=== PATIENT | male | born 1985 | race Caucasian/White ===

== ENCOUNTER 2020-09-30 22:59 | Emergency (ER) | payer MEDICAID ==
[~2020-09-30] VITALS: Ht 177.8 cm; Wt 70.5 kg
[~2020-09-30 22:59] MED LIST: NO HOME MEDS
--- NOTE | 2020-09-30 23:28 | NUR ---
Residence: [facility] [address] [facility], [address] [facility]. [place],
[2020-09-30 23:49] LABS: BASOPHILS % (AUTO) 0.1 % (0-1); EOSINOPHILS % (AUTO) 0.2 % (0-6); HEMATOCRIT 43.3 % (42.0-52.0); HEMOGLOBIN 14.8 g/dl (14.0-17.9); LYMPHOCYTES # (AUTO) 1.6 X10'3 (1.1-4.8); MEAN CORPUSCULAR HEMOGLOBIN 29.7 PG (27.0-31.0); MEAN CORPUSCULAR HGB CONC 34.2 g/dL (33.0-36.5); MEAN CORPUSCULAR VOLUME 86.9 FL (78-98); MEAN PLATELET VOLUME 9.1 FL (7.4-10.4); MONOCYTES # (AUTO) 1.7 X10'3 (0-0.9); MONOCYTES % (AUTO) 11.5 % (2-12); NEUTROPHILS # (AUTO) 11.3 X10'3 (1.8-7.7); NEUTROPHILS % (AUTO) 77.2 % (42-75); PLATELET COUNT 163 X10'3 (140-440); RED BLOOD COUNT 4.99 X10'6 (4.70-6.10); RED CELL DISTRIBUTION WIDTH 13.5 % (11.5-14.5); WHITE BLOOD COUNT 14.6 X10'3 (4.5-11.0)
[2020-10-01 00:01] LABS: CLARITY,URINE CLEAR (Clear); COLOR,URINE YELLOW (Yellow); GLUCOSE, URINE NEGATIVE (Neg); KETONES,URINE NEGATIVE (Neg); LEUKOCYTE ESTERASE ,URINE NEGATIVE (Neg); NITRITES, URINE NEGATIVE (Neg); OCCULT BLOOD,URINE NEGATIVE (Neg); PROTEIN,URINE NEGATIVE (Neg); UROBILINOGEN,URINE 0.2 E.U/dL (0.2-1.0)
[2020-10-01 00:05] LABS: LACTIC SEPSIS 0.7 MMOL/L (0.4-2.0)
[2020-10-01 00:11] LABS: ALANINE AMINOTRANSFERASE 22 U/L (12-78); ALBUMIN 3.7 G/DL (3.4-5.0); ALBUMIN/GLOBULIN RATIO 0.9 (1.1-1.5); ALKALINE PHOSPHATASE 87 IU/L (46-116); ANION GAP 12 (8-16); ASPARTATE AMINO TRANSFERASE 13 U/L (10-37); BLOOD UREA NITROGEN 15 MG/DL (7-18); BUN/CREATININE RATIO 12.7 (5.4-32.0); CALCIUM 8.9 MG/DL (8.5-10.1); CHLORIDE 101 MMOL/L (99-107); CREATININE 1.18 MG/DL (0.60-1.10); ETHANOL < 0.010 GM/DL (0.0-0.010); GLUCOSE 127 MG/DL (70-104); POTASSIUM 3.7 MMOL/L (3.5-5.1); SODIUM 137 MMOL/L (135-145); TOTAL CARBON DIOXIDE 24.1 MMOL/L (24-32); TOTAL PROTEIN 7.8 G/DL (6.4-8.2); TROPONIN I < 0.04 NG/ML (0.0-0.05); eGFR 70 ML/MIN
[2020-10-01 00:12] LABS: URINE AMPHETAMINE SCREEN NEGATIVE (Neg); URINE BARBITUATE SCREEN NEGATIVE (Neg); URINE BENZODIAZEPINES SCREEN NEGATIVE (Neg); URINE CANNABINOID SCREEN NEGATIVE (Neg); URINE COCAINE SCREEN NEGATIVE (Neg); URINE METHADONE SCREEN NEGATIVE (Neg); URINE OPIATE SCREEN NEGATIVE (Neg); URINE PHENCYCLIDINE SCREEN NEGATIVE (Neg)
[2020-10-01 00:14] LABS: UA COLLECTION TYPE VOIDED
--- NOTE | 2020-10-01 02:26 | NUR ---
Spoke with Oren at [facility], he will try to find someone to give patient a ride back. He will call back if he is unable to find anyone. Discharge instructions and follow-up care reviewed with him.
[2020-10-01 02:51] VITALS: BP 124/78
== END 2020-10-01 02:52 | disposition home or self-care (01) ==
LOC: ER 22:59
DX: R41.82 Altered mental status, unspecified (principal); N28.9 Disorder of kidney and ureter, unspecified; R47.81 Slurred speech; F31.9 Bipolar disorder, unspecified; F20.9 Schizophrenia, unspecified; F19.90 Other psychoactive substance use, unspecified, uncomplicated; Z98.890 Other specified postprocedural states; Z72.89 Other problems related to lifestyle; Z56.0 Unemployment, unspecified; Z59.0 Homelessness
CPT/HCPCS: 36415; 70450; 71045; 80053; 80305; 80320; 81003; 82140; 83605; 84484; 85025; 87040; 93005; 99285

== ENCOUNTER 2020-10-02 22:41 | Emergency (ER) | payer MEDICAID ==
[~2020-10-02] VITALS: Ht 172.7 cm; Wt 84.1 kg
[~2020-10-02 22:41] MED LIST changes: +rocuronium 10mg/ml inj IV ONE
[2020-10-02] MEDS ORDERED: dexamethasone sod phosphate 10mg/ml inj IV STA (22:47)
--- NOTE | 2020-10-02 22:47 | NUR ---
MD SUCTIONED ORAL AIRWAY 150 ML LIGHT BROWN SECREATIONS
[2020-10-02] MEDS ORDERED: MIDAZolam 1 MG/ML 5ML VIAL IV ONE (22:50)
[2020-10-02] MEDS ORDERED: midazolam 100mg in NS 100ml 100 ML IV PRN (22:50)
[2020-10-02] MEDS ORDERED: CLINDAMYCIN/D5W 900mg/50ml 50 ML IV STA (22:51)
[2020-10-02 23:15] LABS: ABG BASE EXCESS -4.9 mmol/L (-2.0-2.0); ABG HCO3 22.6 mmol/L (22.0-26.0); ABG OXYGEN SATURATION 94.2 % (94-97); ABG PCO2 (T) 51.5 mmHg (35.0-48.0); ABG PO2 (T) 78.5 mmHg (75.0-100.0); ALLEN'S TEST POSITIVE; FCOHb 3.5 % (0.0-3.9); FMetHb 0.2 % (0.0-1.5); FO2Hb 90.7 % (94-97); PEEP 5 cm H2O; RESPIRATORY RATE 18 b/min; TIDAL VOLUME 400 mL; TOTAL HEMOGLOBIN 14.3 G/dl (14.0-18.0)
[2020-10-02] MEDS ORDERED: acetaminophen 1,000mg/100ml IV 100 ML IV ONE (23:15)
[2020-10-02] MEDS ORDERED: rocuronium 10mg/ml inj IV ONE (23:20)
[2020-10-02] MEDS ORDERED: etomidate 2mg/ml inj. IV ONE (23:20)
[2020-10-02] MEDS ORDERED: iohexol 300mg/ml 100ml inj. ONE (23:22)
[2020-10-02] MEDS: FENTANYL-0.9 % NACL/PF 100 ML IV PRN (23:28)
[2020-10-02 23:38] LABS: BASOPHILS % (AUTO) 0.3 % (0-1); EOSINOPHILS % (AUTO) 0.2 % (0-6); HEMATOCRIT 42.2 % (42.0-52.0); HEMOGLOBIN 14.3 g/dl (14.0-17.9); LYMPHOCYTES # (AUTO) 2.5 X10'3 (1.1-4.8); LYMPHOCYTES % (AUTO) 16.7 % (21-51); MEAN CORPUSCULAR HEMOGLOBIN 29.9 PG (27.0-31.0); MEAN CORPUSCULAR HGB CONC 33.8 g/dL (33.0-36.5); MEAN CORPUSCULAR VOLUME 88.5 FL (78-98); MEAN PLATELET VOLUME 9.4 FL (7.4-10.4); MONOCYTES # (AUTO) 1.6 X10'3 (0-0.9); MONOCYTES % (AUTO) 10.8 % (2-12); PLATELET COUNT 191 X10'3 (140-440); RED BLOOD COUNT 4.77 X10'6 (4.70-6.10); RED CELL DISTRIBUTION WIDTH 13.4 % (11.5-14.5); WHITE BLOOD COUNT 15.2 X10'3 (4.5-11.0)
--- NOTE | 2020-10-02 23:45 | NUR ---
PT TO CT WITH RN FLATBED STITCHER AND RT
[2020-10-02 23:48] LABS: CLARITY,URINE SLIGHTLY CLOUDY (Clear); COLOR,URINE YELLOW (Yellow); GLUCOSE, URINE NEGATIVE (Neg); KETONES,URINE NEGATIVE (Neg); LEUKOCYTE ESTERASE ,URINE NEGATIVE (Neg); NITRITES, URINE NEGATIVE (Neg); OCCULT BLOOD,URINE SMALL (Neg); PROTEIN,URINE 30 mg/dl (Neg)
[2020-10-02 23:51] LABS: URINE AMPHETAMINE SCREEN NEGATIVE (Neg); URINE BARBITUATE SCREEN NEGATIVE (Neg); URINE BENZODIAZEPINES SCREEN NEGATIVE (Neg); URINE CANNABINOID SCREEN NEGATIVE (Neg); URINE COCAINE SCREEN NEGATIVE (Neg); URINE METHADONE SCREEN NEGATIVE (Neg); URINE OPIATE SCREEN NEGATIVE (Neg); URINE PHENCYCLIDINE SCREEN NEGATIVE (Neg)
[2020-10-02 23:51] LABS: ALANINE AMINOTRANSFERASE 15 U/L (12-78); ALBUMIN 3.4 G/DL (3.4-5.0); ALBUMIN/GLOBULIN RATIO 0.8 (1.1-1.5); ALKALINE PHOSPHATASE 82 IU/L (46-116); ANION GAP 14 (8-16); BLOOD UREA NITROGEN 10 MG/DL (7-18); CALCIUM 8.4 MG/DL (8.5-10.1); CHLORIDE 97 MMOL/L (99-107); CREATININE 1.11 MG/DL (0.60-1.10); GLUCOSE 212 MG/DL (70-104); SODIUM 134 MMOL/L (135-145); TOTAL CARBON DIOXIDE 23.5 MMOL/L (24-32); TOTAL PROTEIN 7.9 G/DL (6.4-8.2); eGFR 75 ML/MIN
[2020-10-02 23:57] LABS: ASPARTATE AMINO TRANSFERASE 18 U/L (10-37); POTASSIUM 3.6 MMOL/L (3.5-5.1)
[2020-10-02 23:58] LABS: UA COLLECTION TYPE FOLEY CATH
[2020-10-03] LABS: ETHANOL < 0.010 GM/DL (0.0-0.010); MAGNESIUM 2.2 MG/DL (1.5-2.4)
[2020-10-03] MEDS ORDERED: CLINDAMYCIN/D5W 900mg/50ml 50 ML IV SCH
[2020-10-03 00:09] LABS: BACTERIA,URINE NONE SEEN /HPF (Neg); RBC,URINE 0-2 /HPF (0-2); SQUAMOUS EPITHELIAL CELL,UR MODERATE /LPF (FEW); WBC,URINE 0-4 /HPF (0-4)
--- NOTE | 2020-10-03 04:43 | NUR ---
PT HAS BEEN ACCEPTED TO [facility] FOR A ICU BED ON DAY SHIFT
[2020-10-03 04:59] LABS: ABG BASE EXCESS -0.8 mmol/L (-2.0-2.0); ABG HCO3 24.7 mmol/L (22.0-26.0); ABG OXYGEN SATURATION 97.7 % (94-97); ABG PCO2 (T) 41.3 mmHg (35.0-48.0); ABG PO2 (T) 98.8 mmHg (75.0-100.0); ALLEN'S TEST POSITIVE; FCOHb 1.3 % (0.0-3.9); FMetHb 0.2 % (0.0-1.5); FO2Hb 96.2 % (94-97); PATIENT TEMPERATURE 35.7; PEEP 5 cm H2O; RESPIRATORY RATE 18 b/min; TIDAL VOLUME 450 mL
--- NOTE | 2020-10-03 07:16 | NUR ---
spoke with the material control supervisor at the [facility] patient [facility], she gave me the brother's contact information Joy Pradhan [phone]
[2020-10-03 07:51] LABS: HEMOGLOBIN A1C 5.4 % (4.5-6.2)
--- NOTE | 2020-10-03 10:30 | NUR ---
PATIENT'S FATHER AND YOUNGER BROTHER CAME TO VISIT. I UPDATED THEM ON THE PLAN OF CARE AND GAVE THE UPDATED CONTACT INFORMATION TO REGISTRATION TO UPDATE THE PATIENT DATA.
--- NOTE | 2020-10-03 11:49 | NUR ---
CALLED [facility]'S ICU AT [phone] TO GIVE REPORT AND DULCE MARIA ANSWERED PHONE AND SAID "THEY HAVENT GIVEN ME A NURSE FOR THAT PATIENT YET". SHE REQUESTED A CALL BACK. I ADVISED DULCE MARIA THAT THE TRANSPORT WILL BE HERE IN ABOUT 15 MINS AND TO THEM BY 1300.
--- NOTE | 2020-10-03 12:07 | NUR ---
CALLED BACK TO [facility] AND SPOKE WITH NOREEN العراقي AGAIN AND SHE TOOK REPORT ON THE PATIENT.
[2020-10-03 12:18] VITALS: BP 102/59
[2020-10-03] MEDS: FENTANYL-0.9 % NACL/PF 100 ML IV PRN (12:18)
== END 2020-10-03 13:00 ==
LOC: ER 22:41
DX: J96.00 Acute respiratory failure, unspecified whether with hypoxia or hypercapnia (principal); Z20.822 Contact with and (suspected) exposure to COVID-19; J36 Peritonsillar abscess; E87.6 Hypokalemia; F31.9 Bipolar disorder, unspecified; F20.9 Schizophrenia, unspecified; F19.90 Other psychoactive substance use, unspecified, uncomplicated; Z98.890 Other specified postprocedural states; Z72.89 Other problems related to lifestyle; Z56.0 Unemployment, unspecified
CPT/HCPCS: 31500; 36415; 36556; 36600; 42700; 70491; 71045; 80053; 80305; 80320; 81001; 82803; 83036; 83605; 83735; 83880; 84145; 84443; 84484; 85018; 85025; 87040; 87635; 93005; 94002; 94003; 94799; 96365; 96368; 96375; 99291; C9803; J0131; J1100; J2250; Q9967; 81003; J3010; J3490

== ENCOUNTER 2023-03-03 10:14 | Outpatient (CLI) | payer MEDICAID ==
[~2023-03-03 10:14] MED LIST changes: -rocuronium 10mg/ml inj IV ONE
== END 2023-03-03 23:59 | disposition home or self-care (01) ==
LOC: RAD 10:14
PROVIDERS: ATTEND Nurse Practitioner Psychiatric/Mental Health
DX: Z79.899 Other long term (current) drug therapy (principal)
CPT/HCPCS: 93005

== ENCOUNTER 2024-08-25 09:29 | Outpatient (CLI) | payer MEDICAID ==
--- NOTE | 2024-08-25 12:21 | ELECTROCARDIOGRAPH REPORT ---
[facility] Test Date: 2024-08-25 Test Time: 09:47:59 Pat Name: GLORIA ROWLAND Department: PRE/OP CARDIOLOGY Room: Gender: M Ap Operator: KARLA : 1985 Requested By: THUAN CALDERA Order Number: [id number] Reading MD: Dr. Sonal Jack Measurements Intervals [employer] Rate: 76 P: 85 MA: 174 QRS: 90 QRSD: 93 T: 70 QT: 359 QTc: 404 Interpretive Statements Sinus rhythm Borderline right axis deviation Electronically Signed On 08-27-2024 19:10:[address] Sonal Jack Please click the below link to view image of tracing.
== END 2024-08-25 23:59 | disposition home or self-care (01) ==
LOC: RAD 09:29
PROVIDERS: ATTEND Nurse Practitioner Psychiatric/Mental Health
DX: F20.9 Schizophrenia, unspecified (principal); Z79.899 Other long term (current) drug therapy
CPT/HCPCS: 93005